=== PATIENT | female | born 1950 | race Caucasian/White ===

== ENCOUNTER → 2019-01-15 | Outpatient (CLI) | payer BC ==
--- NOTE | 2019-01-15 13:41 | RAD ---
CLINICAL HISTORY: ESOPHAGEAL CA INDICATION: Initial evaluation. COMPARISON: None available. TECHNIQUE: Location of scan: [facility] Radiopharmaceutical Dose: 18 mCi F-18 FDG intravenous Blood glucose at time of study: 109 FDG uptake time = 60 minutes. Images were obtained from the mid head to the mid thighs. A low dose, noncontrast CT study was performed for the purpose of attenuation correction and anatomic localization. FINDINGS: Head and Neck: Focal soft tissue thickening with increased metabolic activity overlying the left mandible has an SUV max of 8.5. Otherwise physiologic activity seen within the head and neck. Chest: Subcarinal lymph node has an SUV max of 1.6, measuring 13 mm in short axis. There is diffuse dilation of the distal esophagus. Small solid and groundglass nodules are seen in the medial right lower lobe with an SUV max of 6.81 measured in conglomerate. Small nodules in the left lower lobe posteriorly have an SUV max of 4.9. Additional small solid and groundglass nodules are seen in the middle lobe, with an SUV max of about 4. Abdomen and Pelvis: At the gastroesophageal junction there is diffuse wall thickening in conglomerate measuring 5.8 x 4.7 cm within SUV max of 10. Physiologic activity is seen within the renal collecting systems, bowel and solid organs. A small right adrenal nodule has an SUV max of 1.4. A few prominent retroperitoneal and portacaval lymph nodes are seen, although in general do not demonstrate increased metabolic activity. Skeletal: No abnormal focus of increased metabolic activity is seen within the osseous structures. Reference SUV Values: Mediastinal SUV Max: 2.4 Liver SUV Max: 2.9 IMPRESSION: 1. Masslike thickening at the gastroesophageal junction measuring up to 5.8 cm with an SUV max of 10, consistent with known primary esophageal malignancy. 2. Several small retroperitoneal and portacaval lymph nodes are seen demonstrating physiological background levels of activity. 3. Physiologic activity within a small right adrenal nodule. 4. Soft tissue thickening and focus of increased metabolic activity anterior to the left mandible may represent changes of dental disease, amenable to clinical examination. Dedicated CT neck or facial bones with contrast would provide additional details if clinically indicated. Radiation Dosimetry: The radiopharmaceutical used for this exam delivers approximately 0.7 mSv/mCi (70 mRem/mCi) Source: ICRP Publication 106
== END | disposition home or self-care (01) ==
LOC: PETSC 09:57
PROVIDERS: ATTEND Internal Medicine Hematology & Oncology
DX: C15.5 Malignant neoplasm of lower third of esophagus (principal); R91.8 Other nonspecific abnormal finding of lung field; E27.8 Other specified disorders of adrenal gland
CPT/HCPCS: 78815; A9552